=== PATIENT | female | born 2000 | race Two or more races ===

== ENCOUNTER 2022-02-01 11:38 | Emergency (ER) | payer OTHER ==
[~2022-02-01] VITALS: Ht 152.4 cm; Wt 63.0 kg
[2022-02-01 12:43] VITALS: BP 117/83
[2022-02-01] MEDS ORDERED: ACETAMINOPHEN 500 MG TAB PO ONE (13:15)
[2022-02-01] MEDS ORDERED: IBUP600T27 PO (14:38)
[2022-02-01] MEDS ORDERED: CYCL-839 PO (14:38)
== END 2022-02-01 14:50 | disposition home or self-care (01) ==
LOC: ER 11:38
DX: S63.502A Unspecified sprain of left wrist, initial encounter (principal); M25.512 Pain in left shoulder; R07.81 Pleurodynia; W01.0XXA Fall on same level from slipping, tripping and stumbling without subsequent striking against object, initial encounter; Y93.89 Activity, other specified; Y92.89 Other specified places as the place of occurrence of the external cause; Y99.8 Other external cause status
CPT/HCPCS: 71101; 81025

== ENCOUNTER 2022-05-14 12:56 | Emergency (ER) | payer MEDICAID, OTHER ==
[~2022-05-14 12:56] MED LIST: CYCL-839 PO; IBUP600T27 PO
[2022-05-14 13:46] VITALS: BP 117/75
[2022-05-14] MEDS ORDERED: IBUP800T26 PO (14:49)
== END 2022-05-14 14:57 | disposition home or self-care (01) ==
LOC: ER 12:56
DX: S16.1XXA Strain of muscle, fascia and tendon at neck level, initial encounter (principal); M54.12 Radiculopathy, cervical region; M25.512 Pain in left shoulder; W18.09XA Striking against other object with subsequent fall, initial encounter; Y93.89 Activity, other specified; Y92.89 Other specified places as the place of occurrence of the external cause; Y99.8 Other external cause status
CPT/HCPCS: 72040

== ENCOUNTER 2022-08-05 09:55 | Emergency (ER) | payer MEDICAID ==
[~2022-08-05] VITALS: Ht 149.9 cm; Wt 66.3 kg
[~2022-08-05 09:55] MED LIST changes: +IBUP800T26 PO
[2022-08-05 11:13] VITALS: BP 127/84
[2022-08-05] MEDS ORDERED: ACETAMINOPHEN 500 MG TAB PO ONE (12:45)
[2022-08-05] MEDS ORDERED: IBUP600T28 PO (13:40)
[2022-08-05] MEDS ORDERED: CYCL-839 PO (13:40)
== END 2022-08-05 13:56 | disposition home or self-care (01) ==
LOC: ER 09:55
DX: S46.911A Strain of unspecified muscle, fascia and tendon at shoulder and upper arm level, right arm, initial encounter (principal); S46.912A Strain of unspecified muscle, fascia and tendon at shoulder and upper arm level, left arm, initial encounter; X58.XXXA Exposure to other specified factors, initial encounter; Y93.89 Activity, other specified; Y92.89 Other specified places as the place of occurrence of the external cause; Y99.8 Other external cause status
CPT/HCPCS: 73030; 81025

== ENCOUNTER 2022-09-21 06:12 | Emergency (ER) | payer MEDICAID ==
[~2022-09-21] VITALS: Ht 149.9 cm; Wt 66.5 kg
[~2022-09-21 06:12] MED LIST changes: +IBUP-1454 PO; +IBUP-1455 PO; +IBUP1TAB5 PO; -IBUP600T27 PO; -IBUP800T26 PO
[2022-09-21 06:58] LABS: Basophils # (auto) 0 10 ^3/uL (0-0.2); Basophils % (auto) 0.3 % (0.0-2.0); Eosinophils # (auto) 0.1 10 ^3/uL (0-0.8); Hematocrit 40.9 % (36.0-46.0); Hemoglobin 13.7 g/dL (12.2-16.2); Lymphocytes # (auto) 3.5 10 ^3/uL (0.4-5.4); Lymphocytes % (auto) 37.8 % (10.0-50.0); Mean Corpuscular Hemoglobin 30.2 pg (28.0-32.0); Mean Corpuscular Hgb Conc. 33.6 g/dL (32.0-36.0); Mean Corpuscular Volume 90.1 fL (80.0-100.0); Monocytes # (auto) 0.9 10 ^3/uL (0-1.3); Monocytes % (auto) 9.3 % (0.0-12.0); Neutrophils # (auto) 4.8 10 ^3/uL (1.6-8.6); Neutrophils % (auto) 51.6 % (37.0-80.0); Nucleated Red Blood Cells % 0.1 %; Red Blood Cells 4.54 10^6/uL (4.0-5.20); Red Cell Distribution Width 12.8 % (11.8-14.3); White Blood Cell 9.3 10^3/uL (4.4-10.8)
[2022-09-21 07:28] LABS: Potassium 3.7 mmol/L (3.5-5.1)
[2022-09-21 07:35] LABS: Albumin 3.9 g/dL (3.4-5.0); BUN/Creatinine Ratio 23.5 (10.0-20.0); Bilirubin, Total 0.2 mg/dL (0.2-1.0); Magnesium 2.2 mg/dL (1.6-2.6); Total Protein 7.8 g/dL (6.4-8.2)
[2022-09-21 07:44] LABS: INR 0.98 (0.9-1.15); Partial Thromboplastin Time 27.7 SEC (24.5-34.5)
[2022-09-21 11:41] VITALS: BP 130/74
== END 2022-09-21 15:13 | disposition left against medical advice (07) ==
LOC: ER 06:12
DX: R07.9 Chest pain, unspecified (principal); Z53.21 Procedure and treatment not carried out due to patient leaving prior to being seen by health care provider
CPT/HCPCS: 36415; 80053; 83735; 83880; 84484; 85025; 85610; 85730; 93005